=== PATIENT | female | born 1940 | race Caucasian/White ===

== ENCOUNTER 2021-12-24 16:40 | Emergency (ER) | payer OTHER ==
[~2021-12-24] VITALS: Ht 124.5 cm; Wt 54.4 kg
[2021-12-24 17:45] VITALS: BP 166/52
--- NOTE | 2021-12-24 17:46 | NUR ---
[id number] HOMELESS ALF C/O DIFFUSE ABDOMINAL PAIN W N/V. RATES PAIN 5/10. THE PATIENT IS ALERT AND ORIENTED X3. IN ROOM AIR AND DENIES SOB. RESPIRATION REGULAR AND UNLABORED. THE PATIENT IS ATTACHED TO THE MONITOR. WARM BLANKET PROVIDED FOR COMFORT. WILL CONTINUE TO MONITOR THE PATIENT.
[2021-12-24] MEDS ORDERED: ONDANSETRON HCL/PF 4 MG/2 ML VIAL ONE (18:12)
--- NOTE | 2021-12-24 18:25 | NUR ---
THE PATIENT REFUSED BLOOD DRAW, MEDICATION/ FLUIDS, EKG AND CT DESPITE EXPLAINING RISKS AND BENEFITS MULTIPLE TIMES. DR EDDY AWARE.
[2021-12-24] MEDS ORDERED: ONDANSETRON HCL/PF 4 MG/2 ML VIAL IVP ONE (18:30)
[2021-12-24] MEDS ORDERED: IV NS 0.9% 1,000 ML BAG IV ONE (18:30)
--- NOTE | 2021-12-24 18:31 | NUR ---
Patient eloped from facility. Dr Garcia notified.
== END 2021-12-24 18:31 | disposition left against medical advice (07) ==
LOC: EDSEX 16:40 → ER 18:00
DX: R10.9 Unspecified abdominal pain (principal); I10 Essential (primary) hypertension
CPT/HCPCS: 99283; 93005; J7030; A6403; J2405